=== PATIENT | female | born 1985 | race Two or more races ===

== ENCOUNTER 2023-01-21 18:46 | Emergency (ER) | payer OTHER ==
[2023-01-21 19:05] VITALS: BP 110/71; PULSE 82; RESP 18; TEMP 98; BMI 25.7
[2023-01-21] MEDS ORDERED: predniSONE 20 MG TABLET (UD) PO ONE (19:12)
[2023-01-21] MEDS ORDERED: KETOROLAC TROMETHAMINE 60 MG/2 ML VIAL IM ONE (19:13)
[2023-01-21] MEDS ORDERED: predniSONE 20 MG TABLET (UD) ONE (19:25)
[2023-01-21] MEDS ORDERED: KETOROLAC TROMETHAMINE 60 MG/2 ML VIAL ONE (19:25)
== END 2023-01-21 19:32 | disposition home or self-care (01) ==
LOC: FER 18:46
PROC: 3E023GC Introduction of Other Therapeutic Substance into Muscle, Percutaneous Approach (ICD-10-PCS; principal; 2023-01-21)
DX: M25.512 Pain in left shoulder (principal)
CPT/HCPCS: 99284-25